=== PATIENT | female | born 1995 | race African-American/Black ===

== ENCOUNTER 2016-05-15 14:58 | Emergency (ER) | payer BC ==
[2016-05-15] MEDS ORDERED: Alum Hydroxide/Mag Hydroxide 15 ML, Lidocaine 2% 15 ML PO ONE ×2 (15:12)
[2016-05-15] MEDS ORDERED: Ondansetron 8 MG Tab.DIS PO ONE (15:12)
--- NOTE | 2016-05-15 15:27 | EDM.PDOC ---
ED HPI GI/ABDOMINAL - General Chief Complaint: Abdominal Pain Stated Complaint: abdominal pain Time Seen by Provider: 05/15/16 15:18 Source: Reports: Patient History Limitations: Reports: No limitations - History of Present Illness INITIAL COMMENTS - FREE TEXT/NARRATIVE: 20 years old b f came to the ed 3 days after she had her gallbladder and part of her Thyroid removed, complaining of abdominal pain. She said she feels SOB, being afraid of breathing because her stomach while breathing. No trauma. She feels nauseated. Her puls ox was 100%. Pt has painfull urinations, denies . Pt denies any other acute medical issues. Symptom Onset Date: 05/14/16 Symptom Onset Time: 08:00 Timing/Duration: Reports: Hour(s): Location: other (epigastric) Quality: Reports: burning, cramping Severity: moderate Worsens with: Reports: urinating, palpation Context: Reports: recent surgery Associated Symptoms (-Female): Reports: denies other symptoms - Related Data Allergies/ADRs: Allergies Allergy/AdvReac Type Severity Reaction Status Date / Time No Known Allergies Allergy Verified 05/15/16 17:03 Home Meds: Home Meds Ondansetron [Zofran ODT] 4 mg PO Q6H PRN #10 tab.dis 05/15/16 [Rx] oxyCODONE HCl/Acetaminophen [Percocet 10-325 mg Tablet] 1 each PO Q4HR PRN 05/15 [History] Past Medical History - Past Health History Medical/Surgical History: Denies Medical/Surgical History Social & Family History - Tobacco Use Smoking Status *Q: Former Smoker Years of Tobacco use: 1 Used Tobacco, but Quit: Yes Month Tobacco Last Used: 05/14/13 Second Hand Smoke Exposure: Yes - Alcohol Use Days Per Week of Alcohol Use: 0 Number of Drinks Per Day: 3 Total Drinks Per Week: 0 - Recreational Drug Use Recreational Drug Use: No Drug Use in Last 12 Months: Yes Recreational Drug Type: Reports: Marijuana/Hashish Recreational Drug Use Frequency: Binges ED ROS GENERAL - Review of Systems Review Of Systems: See Below Constitutional: Reports: no symptoms HEENT: Reports: No symptoms Respiratory: Reports: Shortness of Breath (hurts to breath) Cardiovascular: Reports: No symptoms Endocrine: Reports: no symptoms GI/Abdominal: Reports: Nausea, Other (epigastric pain) : Reports: dysuria Musculoskeletal: Reports: no symptoms Skin: Reports: wound (surgical wounds RUQ and R ant neck.) Neurological: Reports: No Symptoms Psychiatric: Reports: No symptoms Hematologic/Lymphatic: Reports: no symptoms Immunologic: Reports: no symptoms ED EXAM, GI/ABD - Physical Exam Exam: See Below Exam Limited By: No limitations General Appearance: alert, WD/WN, mild distress Eyes: bilateral: normal appearance Ears: normal external exam Nose: normal inspection, normal mucosa Throat/Mouth: Normal inspection, Normal lips, Normal teeth, Normal gums, Normal oropharynx Head: atraumatic, normocephalic Neck: normal inspection, supple, non-tender, full range of motion Respiratory/Chest: no respiratory distress, lungs clear, normal breath sounds, no accessory muscle use, chest non-tender Cardiovascular: normal peripheral pulses, regular rate, rhythm, no edema, no gallop GI/Abdominal: tenderness (dender epigastric area) (Female) Exam: Deferred Rectal (Female) Exam: Deferred Back Exam: normal inspection, full range of motion Extremities: normal inspection, normal range of motion, non-tender, no pedal edema, normal capillary refill Neurological: alert, oriented, CN II-XII intact, normal cognition, normal gait Psychiatric: normal affect Skin Exam: Warm, Dry, Normal color, No rash, Other (weel healing surgical scars) Lymphatic: no adenopathy Course - Vital Signs Text/Narrative:: 20 years old b f came to the ed 3 days after she had her gallbladder and part of her Thyroid removed, complaining of abdominal pain. She said she feels SOB, being afraid of breathing because her stomach while breathing. No trauma. She feels nauseated. Her puls ox was 100%. Pt has painfull urinations, denies . Pt denies any other acute medical issues. PE: Epigastric pain Impression: Gastritis S/P Cholecystectomy Tx: Zofran, GI cocktail Reexam: Improved Plan: D/C with instructions Last Recorded V/S: Last Vital Signs Temp 37.0 C 05/15/16 16:25 Pulse 87 05/15/16 16:25 Resp 15 05/15/16 16:25 BP 131/76 05/15/16 16:25 Pulse Ox 99 05/15/16 16:25 - Orders/Labs/Meds Labs: Laboratory Tests 05/15/16 05/15/16 05/15/16 Range/Units 15:36 15:36 15:36 Urine Color Yellow (YELLOW) Urine Appearance Clear (CLEAR) Urine pH 5.0 (5.0-6.5) Ur Specific [place] 1.020 (1.010-1.025) Urine Protein Negative (NEGATIVE) mg/dL Urine Glucose (UA) Normal (NEGATIVE) mg/dL Urine Ketones Negative (NEGATIVE) mg/dL Urine Occult Blood Negative (NEGATIVE) Urine Nitrite Negative (NEGATIVE) Urine Bilirubin Negative (NEGATIVE) Urine Urobilinogen Normal (NEGATIVE) mg/dL Ur Leukocyte Esterase Negative (NEGATIVE) Urine RBC 0-5 (0) Urine WBC 0-5 (0) Ur Squamous Epith Cells Moderate H (NS,R,O) Urine Bacteria Moderate H (NS) Urine HCG, Qual Negative (NEGATIVE) Urine Opiates Screen Negative (NEGATIVE) Ur Oxycodone Screen Positive H (NEGATIVE) Ur Propoxyphene Screen Negative (NEGATIVE) Ur Barbituates Screen Negative (NEGATIVE) Ur Tricyclics Screen Negative (NEGATIVE) Ur Phencyclidine Scrn Negative (NEGATIVE) Ur Amphetamine Screen Negative (NEGATIVE) Urine MDMA Screen Negative (NEGATIVE) U Benzodiazepines Scrn Negative (NEGATIVE) U Cocaine Metab Screen Negative (NEGATIVE) U Marijuana (THC) Screen Positive H (NEGATIVE) Meds: Medications Discontinued Medications Generic Name Dose Route Start Last Admin Trade Name Freq PRN Reason Stop Dose Admin Al Hydroxide/Mg Hydroxide 30 ml 05/15/16 15:54 05/15/16 16:00 Mag-Al Susp PO 05/15/16 15:55 30 ml ONETIME STA Administration Al Hydroxide/Mg Hydroxide 15 0 ml 05/15/16 15:12 05/15/16 15:21 ml/ Lidocaine HCl 15 ml PO 05/15/16 15:13 15 ml ONETIME ONE Administration Hydromorphone HCl 0.5 mg 05/15/16 16:54 Dilaudid IVPUSH 05/15/16 16:55 ONETIME ONE Hydromorphone HCl 0.5 mg 05/15/16 17:14 Dilaudid IVPUSH 05/15/16 17:15 ONETIME ONE Sodium Chloride 1,000 mls @ 999 mls/hr 05/15/16 16:53 Normal Saline IV 05/15/16 17:53 .BOLUS ONE Promethazine HCl 12.5 mg/ 50.5 mls @ 200 mls/hr 05/15/16 17:02 Sodium Chloride IV 05/15/16 17:17 ONETIME STA Ondansetron HCl 8 mg 05/15/16 15:12 05/15/16 15:24 Zofran Odt PO 05/15/16 15:13 8 mg ONETIME ONE Administration Pantoprazole Sodium 40 mg 05/15/16 17:08 Protonix Iv IVPUSH 05/15/16 17:09 ONETIME ONE Departure - Departure Time of Disposition: 16:15 Disposition: Home, Self-Care 01 Condition: good Clinical Impression: Gastritis Qualifiers: Gastritis type: unspecified gastritis Chronicity: acute Gastritis bleeding: without bleeding Qualified Code(s): K29.00 - Acute gastritis without bleeding Prescriptions: Ondansetron [Zofran ODT] 4 mg PO Q6H PRN #10 tab.dis PRN Reason: Nausea Instructions: Gastritis, Adult, [id number] Referrals: Milton Coronado MD [Primary Care Provider] - Forms: ED Department Discharge Additional Instructions: Please take Maalox 30 cc every 8 yours as needed for epigastric pain. Please take Zofran fro nausea,please f/u, come back if your symptoms get worse acutely.
[2016-05-15] MEDS ORDERED: Aluminum Hydroxide/Magnesium Hydroxide Susp 30 ML Cup PO STA (15:54)
[2016-05-15 16:41] VITALS: BP 131/76
[2016-05-15] MEDS ORDERED: Sodium Chloride 0.9% 1,000 ML IV ONE (16:53)
[2016-05-15] MEDS ORDERED: HYDROmorphone 2 MG/ML SDV IVPUSH ONE ×2 (16:54→17:14)
[2016-05-15] MEDS ORDERED: Promethazine 12.5 MG in Sodium Chloride 0.9% 50 ML IV STA (17:02)
[2016-05-15] MEDS ORDERED: Pantoprazole 40 MG Vial IVPUSH ONE (17:08)
== END 2016-05-15 16:25 | disposition home or self-care (01) ==
LOC: FB.ED 14:58
DX: K29.00 Acute gastritis without bleeding (principal); Z87.891 Personal history of nicotine dependence
CPT/HCPCS: 80305; 81001; 81025; 99284; A9270

== ENCOUNTER 2016-05-15 16:52 | Observation (INO) | payer BC ==
[2016-05-15] MEDS ORDERED: Sodium Chloride 0.9% 1,000 ML IV SCH ×2 (17:00→18:15)
[2016-05-15] MEDS ORDERED: HYDROmorphone 2 MG/ML SDV IVPUSH ONE ×2 (17:20)
[2016-05-15] MEDS ORDERED: Promethazine 12.5 MG in Sodium Chloride 0.9% 50 ML IV PRN (17:21)
[2016-05-15] MEDS ORDERED: Pantoprazole 40 MG Vial IVPUSH ONE (17:22)
--- NOTE | 2016-05-15 17:25 | EDM.PDOC ---
[id number] 4d VOMITTING Time Seen by Provider: 05/15/16 16:52 Source: Reports: Patient, Family History Limitations: Reports: Other (N/V) - History of Present Illness INITIAL COMMENTS - FREE TEXT/NARRATIVE: 20 years old b f s/p cholecystectomy 05/12/2016, was here in the ed about 2.30 pm due to epigastric pain. She took one Percocet at noon and came to the ed at about 2.30pm because her epigastric pain got worse. HCG was neg. Here in the ED, she was doing better after zofran and a gi cocktial were given. She was discharged to home. Pt was texting while in the ed requesting to be discharged. Pt left the premises, came a little while later with her mom complaining of severe epigastric pain, retching, bending over, pallor and diaphoretic. Her vital were nl. Pt denied "street drug" use. Denied trauma. Symptom Onset Date: 05/15/16 Symptom Onset Time: 07:00 Timing/Duration: Reports: Sudden onset Location: other (epigastric) Quality: Reports: ache, burning, cramping, fullness, stabbing, throbbing Severity: severe Context: Reports: recent surgery Associated Symptoms (-Female): Reports: loss of appetite, nausea/vomiting - Related Data Allergies/ADRs: Allergies Allergy/AdvReac Type Severity Reaction Status Date / Time No Known Allergies Allergy Verified 05/15/16 17:03 Home Meds: Home Meds Ondansetron [Zofran ODT] 4 mg PO Q6H PRN #10 tab.dis 05/15/16 [Rx] oxyCODONE HCl/Acetaminophen [Percocet 10-325 mg Tablet] 1 each PO Q4HR PRN 05/15 [History] Past Medical History - Past Health History Medical/Surgical History: Denies Medical/Surgical History Gastrointestinal History: Reports: Cholelithiasis [employer] History: Reports: Other OB/BYN History: breast reduction - Past Surgical History Other HEENT Surgeries/Procedures: wisdom teeth removed, Rt thyroidectomy GI Surgical History: Reports: Cholecystectomy Social & Family History - Family History Family Medical History: Unobtainable - Tobacco Use Smoking Status *Q: Former Smoker Years of Tobacco use: 1 Used Tobacco, but Quit: Yes Month Tobacco Last Used: 05/14/13 Second Hand Smoke Exposure: Yes - Caffeine Use Caffeine Use: Reports: Coffee, Tea - Alcohol Use Days Per Week of Alcohol Use: 0 Number of Drinks Per Day: 3 Total Drinks Per Week: 0 - Recreational Drug Use Recreational Drug Use: No Drug Use in Last 12 Months: Yes Recreational Drug Type: Reports: Marijuana/Hashish Recreational Drug Use Frequency: Binges ED ROS GENERAL - Review of Systems Review Of Systems: See Below Constitutional: Reports: other (epigastric pain) HEENT: Reports: No symptoms Respiratory: Reports: No Symptoms Cardiovascular: Reports: No symptoms Endocrine: Reports: no symptoms GI/Abdominal: Reports: Abdominal pain, Nausea, Vomiting : Reports: dysuria Musculoskeletal: Reports: no symptoms Skin: Reports: no symptoms Neurological: Reports: No Symptoms Psychiatric: Reports: No symptoms Hematologic/Lymphatic: Reports: no symptoms Immunologic: Reports: no symptoms ED EXAM, GI/ABD - Physical Exam Exam: See Below Exam Limited By: Other (N/V epigastric pain) General Appearance: alert, WD/WN, moderate distress Eyes: bilateral: normal appearance Ears: normal external exam Nose: normal inspection, normal mucosa Throat/Mouth: Normal inspection, Normal lips, Normal teeth Head: atraumatic, normocephalic Neck: normal inspection, supple, non-tender Respiratory/Chest: no respiratory distress, lungs clear, normal breath sounds, no accessory muscle use Cardiovascular: normal peripheral pulses, regular rate, rhythm, no edema, no JVD , no murmur GI/Abdominal: hypoactive bowel sounds, tenderness, distention, guarding (Female) Exam: Deferred Rectal (Female) Exam: Deferred Back Exam: normal inspection Extremities: normal inspection Neurological: alert, oriented, CN II-XII intact, normal cognition Psychiatric: normal affect, normal mood Skin Exam: Warm, Dry, Intact, Normal color, No rash Lymphatic: no adenopathy Course - Vital Signs Text/Narrative:: 20 years old b f s/p cholecystectomy 05/12/2016, was here in the ed about 2.30 pm due to epigastric pain. She took one Percocet at noon and came to the ed at about 2.30pm because her epigastric got worse. HCG was neg. Here in the ED, she was doing better after zofran and a gi cocktial and was discharged home. Pt was texting while in the ed requesting to be discharged. Pt left the premises, came a little while later with her mom complaining of severe epigastric pain, retching, bending over, pallor and diaphoretic. Her vital were nl. Pt denied "street drug" use. Denied trauma. PE: Pallor, diaphoretic complaining of epigastruic pain: Tender epigastricum, decr. bowelsounds Labs: LFT and Amylase was nl. WBC was 12.5 Imaging: abd. flat/upright NAD as per Dr. Smyth. 8.32 pmCT abd. as per Dr. Smyth : nonspecific could be postoperative of any kind of inflammation 6.14pm: Consultation: Dr. Jacobs: Surgeon at [facility]: US RUG of abdomen. Imaging: US not available till 7 am 8.35 pm: Consultation Dr. Blount, Surgeon: Will see pt at the [facility]: recommended to transfer the Pt to [facility] DDx: Possible bile leak. PLan: Tranfere to [facility], direct admit. 9.22pm, Accepting Physician: Dr. Wallis Last Recorded V/S: Last Vital Signs Temp 36.6 C 05/15/16 19:00 Pulse 68 05/15/16 19:00 Resp 16 05/15/16 19:00 BP 145/85 H 05/15/16 19:00 Pulse Ox 100 05/15/16 19:00 - Orders/Labs/Meds Labs: Laboratory Tests 05/15/16 05/15/16 05/15/16 Range/Units 17:40 17:40 17:40 WBC 12.5 H (4.5-12.0) X10-3/uL RBC 5.01 (3.23-5.20) x10(6)uL Hgb 14.7 D (11.5-15.5) g/dL Hct 46.3 D (30.0-51.3) % MCV 92.4 (80-96) fL MCH 29.4 (27.7-33.6) pg MCHC 31.9 L (32.2-35.4) g/dL RDW 12.0 (11.5-15.5) % Plt Count 220 (125-369) X10(3)uL MPV 8.1 (7.4-10.4) fL Add Manual Diff Yes Neutrophils % (Manual) 78 (46-82) % Band Neutrophils % 2 (0-6) % Lymphocytes % (Manual) 17 (13-37) % Monocytes % (Manual) 3 L (4-12) % PT 11.3 H (8.7-11.1) INR 1.12 (0.89-1.13) Sodium 135 (135-145) mmol/L Potassium 3.7 (3.5-5.3) mmol/L Chloride 102 (100-110) mmol/L Carbon Dioxide 23 (23-29) mmol/L BUN 7 (5-20) mg/dL Creatinine 0.6 (0.6-1.3) mg/dL Est Cr Clr Drug Dosing 137.68 mL/min Estimated GFR (MDRD) > 60 (>60) BUN/Creatinine Ratio 11.7 (9-20) Glucose 158 H (80-116) mg/dL Calcium 9.0 (8.6-10.2) mg/dL Total Bilirubin 0.8 (0.1-1.3) mg/dL Direct Bilirubin 0.1 (0.1-0.2) mg/dL AST 27 (5-27) IU/L ALT 40 H (14-26) IU/L Alkaline Phosphatase 47 L (56-112) IU/L Total Protein 8.3 H (6.0-8.0) g/dL Albumin 4.8 (3.5-5.2) g/dL Amylase 38 (28-100) U/L TSH, Ultra Sensitive (0.4-5.5) nlU/mL 05/15/16 Range/Units 17:40 WBC (4.5-12.0) X10-3/uL RBC (3.23-5.20) x10(6)uL Hgb (11.5-15.5) g/dL Hct (30.0-51.3) % MCV (80-96) fL MCH (27.7-33.6) pg MCHC (32.2-35.4) g/dL RDW (11.5-15.5) % Plt Count (125-369) X10(3)uL MPV (7.4-10.4) fL Add Manual Diff Neutrophils % (Manual) (46-82) % Band Neutrophils % (0-6) % Lymphocytes % (Manual) (13-37) % Monocytes % (Manual) (4-12) % PT (8.7-11.1) INR (0.89-1.13) Sodium (135-145) mmol/L Potassium (3.5-5.3) mmol/L Chloride (100-110) mmol/L Carbon Dioxide (23-29) mmol/L BUN (5-20) mg/dL Creatinine (0.6-1.3) mg/dL Est Cr Clr Drug Dosing mL/min Estimated GFR (MDRD) (>60) BUN/Creatinine Ratio (9-20) Glucose (80-116) mg/dL Calcium (8.6-10.2) mg/dL Total Bilirubin (0.1-1.3) mg/dL Direct Bilirubin (0.1-0.2) mg/dL AST (5-27) IU/L ALT (14-26) IU/L Alkaline Phosphatase (56-112) IU/L Total Protein (6.0-8.0) g/dL Albumin (3.5-5.2) g/dL Amylase (28-100) U/L TSH, Ultra Sensitive 1.23 (0.4-5.5) nlU/mL Meds: Medications Discontinued Medications Generic Name Dose Route Start Last Admin Trade Name Freq PRN Reason Stop Dose Admin Diphenhydramine HCl 25 mg 05/15/16 18:50 05/15/16 18:57 Benadryl IVPUSH 05/15/16 18:51 25 mg ONETIME ONE Administration Hydromorphone HCl 0.5 mg 05/15/16 17:20 05/15/16 17:44 Dilaudid IVPUSH 05/15/16 17:21 0.5 mg ONETIME ONE Administration Hydromorphone HCl 0.5 mg 05/15/16 17:20 05/15/16 17:20 Dilaudid IVPUSH 05/15/16 17:21 0.5 mg ONETIME ONE Administration Promethazine HCl 12.5 mg/ 50.5 mls @ 200 mls/hr 05/15/16 17:21 05/15/16 17:21 Sodium Chloride IV 200 mls/hr Q6H PRN Administration Nausea/Vomiting Sodium Chloride 1,000 mls @ 999 mls/hr 05/15/16 17:00 05/15/16 17:00 Normal Saline IV 999 mls/hr ASDIRECTED MARY JO Administration Sodium Chloride 1,000 mls @ 125 mls/hr 05/15/16 18:15 05/15/16 18:10 Normal Saline IV 125 mls/hr ASDIRECTED MARY JO Administration Iopamidol 75 ml 05/15/16 19:26 05/15/16 19:47 Isovue-370 (76%) IV 05/15/16 19:27 75 ml ONETIME ONE Administration Morphine Sulfate 2 mg 05/15/16 17:57 05/15/16 18:04 Morphine IVPUSH 05/15/16 17:58 2 mg ONETIME ONE Administration Morphine Sulfate 1 mg 05/15/16 21:20 05/15/16 21:20 Morphine IVPUSH 05/15/16 21:21 1 mg Q1H ONE Administration Morphine Sulfate 1 mg 05/15/16 22:14 05/15/16 22:15 Morphine IVPUSH 1 mg Q1H PRN Administration Abdominal Pain Ondansetron HCl 4 mg 05/15/16 18:46 Zofran IV Q6H PRN Nausea/Vomiting Pantoprazole Sodium 40 mg 05/15/16 17:22 05/15/16 17:25 Protonix Iv IVPUSH 05/15/16 17:23 40 mg ONETIME ONE Administration Departure - Departure Time of Disposition: 08:00 Disposition: Admitted As Inpatient 64 Condition: fair Clinical Impression: Abdominal pain Qualifiers: Abdominal location: upper abdomen, unspecified Qualified Code(s): R10.10 - Upper abdominal pain, unspecified
[2016-05-15] MEDS ORDERED: Morphine 2 MG/ML Syringe IVPUSH ONE ×2 (17:57→21:20)
[2016-05-15] MEDS ORDERED: Ondansetron 4 MG/2 ML SDV IV PRN (18:46)
[2016-05-15] MEDS ORDERED: diphenhydrAMINE 50 MG/ML SDV IVPUSH ONE (18:50)
[2016-05-15 19:20] VITALS: BP 145/85
[2016-05-15] MEDS ORDERED: Iopamidol 755 Mg/ML 75 ML Bottle IV ONE (19:26)
[2016-05-15] MEDS ORDERED: Morphine 2 MG/ML Syringe IVPUSH PRN (22:14)
--- NOTE | 2016-05-16 01:07 | CONS ---
DATE OF CONSULTATION: 05/15/2016 HISTORY OF PRESENT ILLNESS: This is a 20-year-old female is seen tonight at the request of the hospitalist. This patient underwent laparoscopic cholecystectomy along with a partial thyroidectomy on 05/11/2016. This was done at the [facility] in [place]. The patient apparently did well for the 1st three days after surgery, but this morning noted some epigastric pain when she dropped her son off at daycare. This was unlike any pain that she had up to this point. The pain became quite intense and she presented to the emergency room where she was given pain medication and had initial evaluation. She seemed to improve and went home, but after less than one hour at home she noted her pain continuing to worsen and presented back to the emergency room. This has led to further evaluation and admission. The patient describes her pain in the upper abdomen most severe in the right upper quadrant and in the epigastrium. She describes it as a gradually increasing pressure feeling. It is associated with some nausea and she has had several episodes of vomiting. The patient did not have much pain from carbon dioxide postoperatively and this pain that she is experiencing today is unlike anything that she has felt previously during her recovery. She was evaluated in emergency room, where laboratory studies were drawn. She has had a mild elevation of her white blood cell count 12,500. Hemoglobin was normal at 14.7. Liver function tests were unremarkable including a bilirubin, which is 0.8. Her amylase was also normal. The patient went on to have a CT scan of the abdomen, which was interpreted by the local radiologist as showing large amount of intraabdominal fluid. No localized abscess or other complication was noted. PAST MEDICAL HISTORY: Shows that she is otherwise generally been healthy. She does not take any routine medications at home other than postoperative pain medication. ALLERGIES: She has no known drug allergies. PAST SURGICAL HISTORY: She has not had any previous abdominal surgery. PHYSICAL EXAMINATION: VITAL SIGNS: Shows temperature of 97.9, pulse 68, blood pressure is 145/85, respirations are 16 and unlabored. GENERAL: She appears to be an adult female. She is in no acute distress, but does complain of intense epigastric pain. HEENT: Head is normocephalic. There is no scleral icterus. HEART: Regular. LUNGS: Clear. ABDOMEN: Demonstrates mild general distention. There is moderate tenderness to direct palpation in the upper abdomen with some mild percussion tenderness in the right upper quadrant. Her surgical incisions on her abdomen and her neck all appeared to be healing well without any erythema or evidence of purulent drainage. EXTREMITIES: No edema. IMPRESSION: Increasing abdominal pain and intraabdominal fluid post cholecystectomy and consider possible bile leak. RECOMMENDATIONS: Advised transfer to [facility] in [place] where more thorough evaluation can be carried out and definitive care could be given pending final diagnosis. I have discussed this with the patient and she agrees to accept transfer by ambulance. Discussion has also been carried out with the surgeon information coder, and the staff in [facility] in [place] and they have agreed to accept this patient as a direct admission for evaluation. She will be transferred tonight. /[id number] JEAN PAUL/LILY AGUILAR
--- NOTE | 2016-05-16 08:35 | CR ---
INDICATION: Abdominal pain after surgery (status post GB and thyroid surgery ). Pain over incisions and right upper quadrant starting today. ABDOMEN: Four images of the abdomen in supine and upright projections revealed clips compatible with cholecystectomy. The pattern of gas and feces is nonspecific, without evidence of free air or obstruction. No organomegaly, mass lesions, or pathologic calcifications were identified. A mild dextroconcave scoliosis of the upper middle lumbar spine is noted. IMPRESSION: 1. Essentially nonspecific abdomen. 2. Post cholecystectomy. 3. Mild scoliosis. Report was called to Dr. Marivel grant (05/15/2016) LAUREN
--- NOTE | 2016-05-16 08:53 | CT ---
INDICATION: Abdomen pain, question appendicitis. CT ABDOMEN AND PELVIS WITH CONTRAST: Spiral 2.5-mm axial sections were obtained through the abdomen and pelvis with 75 mL Isovue-370 at 2 mL per second , with sagittal and coronal reconstructions. What appears to be the appendix appeared normal, seen on coronal image #30 of 84 and also on axial image #111 of 187. The gallbladder is absent, compatible with history of its removal, with clips in the area of the cystic duct. There is some fluid in the gallbladder bed and at the inferior tip of the right lobe of the liver. Fluid also extends into the paracolic gutter, inferiorly into the pelvis, with fluid also noted in the left pelvis and posterior cul-de- sac. These findings may all be on the basis of the relatively recent surgery - cholecystectomy apparently on 05/11/2016. The possibility of an inflammatory process, however, cannot be excluded. At any rate, no definite abscess formation was seen. No evidence of bowel obstruction was identified, with a nonspecific pattern of gas and feces and no significant - large amount - of free air noted. There are a few bubbles of free air, which may simply be on the basis of the recent surgery, but again, the possibility of peritonitis with gas-forming organism is difficult to entirely exclude. Findings should be correlated clinically, therefore. No intrahepatic ductal dilatation was identified. The common bile duct appeared normal in caliber. The pancreas was normal in appearance, as was the spleen, adrenals, and kidneys. No retroperitoneal mass was seen. No definite uterine mass was seen. Follicular cyst suggested at the left ovary. IMPRESSION: 1. There is abdominal ascites, most prominent in the pelvis, likely on the basis of recent surgery. However, the possibility of peritonitis cannot be excluded. Some residual free air in the pelvis most likely is post surgical, but again, gas-forming organism peritonitis would be a consideration or leakage from bowel. Only a few tiny bubbles of gas were seen, however, intraperitoneally. 2. Post cholecystectomy. CT PELVIS: Examination of the pelvis was obtained by CT, as noted above, and revealed fluid in the pelvis, both right and left, and in the posterior cul-de- sac area. Fluid is nonspecific and may simply be on the basis of the recent cholecystectomy. Peritonitis, of course, cannot be excluded. Other etiology, such as a large ruptured ovarian cyst cannot be excluded. There are a few bubbles of free air in the lower pelvis area and some gas in the abdominal wall , likely on the basis of the previous surgery. Findings should be correlated clinically. Follow-up study may be warranted, depending upon clinical course. Total Exam DLP = 401.17 mGy-cm. Report was called to Dr. Orta at 2035 hours, 05/15/2016. [facility]
== END 2016-05-15 22:15 ==
LOC: FB.ED 16:52 → FB.MS 18:46
PROVIDERS: ADMIT Family Medicine; ATTEND Family Medicine
DX: R10.10 Upper abdominal pain, unspecified (principal); E89.0 Postprocedural hypothyroidism; Z79.899 Other long term (current) drug therapy; Z90.49 Acquired absence of other specified parts of digestive tract; Z98.890 Other specified postprocedural states; Z87.891 Personal history of nicotine dependence; R10.13 Epigastric pain; R06.02 Shortness of breath; R11.0 Nausea
CPT/HCPCS: 36415; 74020; 74177; 80048; 80076; 80305; 81001; 81025; 82150; 83605; 84443; 85025; 85610; 96361; 96374; 96375; 96376; 99284; A9270; C9113; G0378; J1170; J1200; J2270; J2550; J7040; J7050; Q9967

== ENCOUNTER 2019-06-26 12:30 | Emergency (ER) | payer MEDICAID ==
[2019-06-26] MEDS ORDERED: Sodium Chloride 0.9% 1,000 ML IV SCH (12:45)
[2019-06-26] MEDS ORDERED: Sodium Chloride 0.9% 10 ML Syringe FLUSH PRN (12:45)
[2019-06-26] MEDS ORDERED: Ondansetron 4 MG/2 ML SDV IVPUSH ONE (12:45)
[2019-06-26] MEDS ORDERED: Pantoprazole 40 MG Vial IVPUSH ONE (12:47)
--- NOTE | 2019-06-26 13:57 | EDM.PDOC ---
ED HPI GENERAL MEDICAL PROBLEM - General Chief Complaint: Gastrointestinal Problem Stated Complaint: VOMITING Time Seen by Provider: 06/26/19 12:40 Source of Information: Reports: Patient History Limitations: Reports: No Limitations - History of Present Illness INITIAL COMMENTS - FREE TEXT/NARRATIVE: Patient presented to the ED because of persistent N/V/D x 1 day. She couldn't keep anything down. There is epigastric pain most likely due to her PUD, although she denies any melanotic stools. There is no fever or chills, no cough or cold symptoms. 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 . Musculoskeletal History: Reports: Back Pain, Chronic Psychiatric History: Reports: Anxiety, Other (See Below) Other Psychiatric History: Takes Adderall. Endocrine/Metabolic History: Reports: Hyperthyroidism Other Endocrine/Metabolic History: History of hyperthyroidism. - Past Surgical History HEENT Surgical History: Reports: Oral Surgery Other HEENT Surgeries/Procedures: [place] teeth removed. Right thyroidectomy. GI Surgical History: Reports: Cholecystectomy, Hernia, Inguinal, Hernia Repair/ Other Other GI Surgeries/Procedures: Umbilical hernia repair. Endocrine Surgical History: Reports: Thyroidectomy Other Endocrine Surgeries/Procedures: Partial thyroidectomy. Social & Family History - Family History Family Medical History: Unobtainable - Tobacco Use Smoking Status *Q: Never Smoker - Caffeine Use Caffeine Use: Reports: Coffee, Tea - Recreational Drug Use Recreational Drug Type: Reports: Marijuana/Hashish ED ROS GENERAL - Review of Systems Review Of Systems: See Below Constitutional: Reports: No Symptoms HEENT: Reports: No Symptoms Respiratory: Reports: No Symptoms Cardiovascular: Reports: No Symptoms Endocrine: Reports: No Symptoms GI/Abdominal: Reports: Diarrhea, Nausea, Vomiting Musculoskeletal: Reports: No Symptoms Skin: Reports: No Symptoms ED EXAM, GI/ABD - Physical Exam Exam: See Below Exam Limited By: No Limitations General Appearance: Alert, No Apparent Distress Ears: Normal External Exam, Normal Canal Nose: Normal Inspection, Normal Mucosa, No Blood Throat/Mouth: Normal Inspection, Normal Lips, Normal Teeth Head: Atraumatic, Normocephalic, Facial Swelling Neck: Normal Inspection, Supple, Non-Tender Respiratory/Chest: No Respiratory Distress, Lungs Clear, Normal Breath Sounds Cardiovascular: Normal Peripheral Pulses, Regular Rate, Rhythm, No Edema GI/Abdominal Exam: Normal Bowel Sounds, Soft, Non-Tender, Abnormal Bowel Sounds Back Exam: Normal Inspection, Full Range of Motion Course - Vital Signs Text/Narrative:: labs reviewed and discussed with patient and verbalized full understanding NS 1 L bolus Zofran 4 mg IV x1 Protonix 40 mg IV x1 Last Recorded V/S: Last Vital Signs Temp 34.7 C L 06/26/19 12:40 Pulse 124 H 06/26/19 12:40 Resp 16 06/26/19 12:40 BP 140/89 06/26/19 12:40 Pulse Ox 100 06/26/19 12:40 - Orders/Labs/Meds Orders: Active Orders 24 hr Category Date Time Status Sodium Chloride 0.9% [Normal Saline] 1,000 ml Med 06/26/19 12:45 Active IV ASDIRECTED Sodium Chloride 0.9% [Saline Flush] Med 06/26/19 12:45 Active 10 ml FLUSH ASDIRECTED PRN Saline Lock Insert [OM.PC] Routine Oth 06/26/19 12:45 Ordered Medication Orders Sodium Chloride (Normal Saline) 1,000 mls @ 999 mls/hr IV ASDIRECTED MARY JO Last Admin: 06/26/19 13:05 Dose: 999 mls/hr Sodium Chloride (Saline Flush) 10 ml FLUSH ASDIRECTED PRN PRN Reason: Keep Vein Open Labs: Laboratory Tests 06/26/19 06/26/19 Range/Units 12:55 12:55 WBC 14.9 H (4.5-12.0) X10-3/uL RBC 5.28 H (3.23-5.20) x10(6)uL Hgb 17.2 H (11.5-15.5) g/dL Hct 50.4 (30.0-51.3) % MCV 95.4 (80-96) fL MCH 32.5 (27.7-33.6) pg MCHC 34.1 (32.2-35.4) g/dL RDW 11.6 (11.5-15.5) % Plt Count 258 (125-369) X10(3)uL MPV 8.2 (7.4-10.4) fL Neut % (Auto) 84.0 H (46-82) % Lymph % (Auto) 12.0 L (13-37) % [place] % (Auto) 3.3 L (4-12) % Eos % (Auto) 0 L (1.0-5.0) % Baso % (Auto) 1 (0-2) % Neut # (Auto) 12.5 H (1.6-8.3) # Lymph # (Auto) 1.8 (0.6-5.0) # [place] # (Auto) 0.5 (0.0-1.3) # Eos # (Auto) 0.0 (0.0-0.8) # Baso # (Auto) 0.1 (0.0-0.2) # Sodium 137 (135-145) mmol/L Potassium 4.6 (3.5-5.3) mmol/L Chloride 101 (100-110) mmol/L Carbon Dioxide 24 (21-32) mmol/L BUN 8 (7-18) mg/dL Creatinine 0.9 (0.55-1.02) mg/dL Est Cr Clr Drug Dosing 85.24 mL/min Estimated GFR (MDRD) > 60 (>60) BUN/Creatinine Ratio 8.9 L (9-20) Glucose 128 H (80-116) mg/dL Calcium 9.8 (8.6-10.2) mg/dL Meds: Medications Generic Name Dose Route Start Last Admin Trade Name Freq PRN Reason Stop Dose Admin Sodium Chloride 1,000 mls @ 999 mls/hr 06/26/19 12:45 06/26/19 13:05 Normal Saline IV 999 mls/hr ASDIRECTED MARY JO Administration Sodium Chloride 10 ml 06/26/19 12:45 Saline Flush FLUSH ASDIRECTED PRN Keep Vein Open Discontinued Medications Generic Name Dose Route Start Last Admin Trade Name Freq PRN Reason Stop Dose Admin Ondansetron HCl 4 mg 06/26/19 12:45 06/26/19 13:06 Zofran IVPUSH 05/14/20 12:46 4 mg ONETIME ONE Administration Pantoprazole Sodium 40 mg 06/26/19 12:47 06/26/19 13:09 Protonix Iv IVPUSH 06/26/19 12:48 40 mg ONETIME ONE Administration Departure - Departure Time of Disposition: 14:00 Disposition: Home, Self-Care 01 Condition: Good Clinical Impression: Viral gastroenteritis, Dehydration, Peptic ulcer - Discharge Information Prescriptions: Ondansetron [Zofran ODT] 4 mg PO Q6H PRN #5 tab.dis PRN Reason: Nausea Referrals: Lucas Gold MD [Primary Care Provider] - Forms: ED Department Discharge Additional Instructions: please read discharge instructions on viral gastroenteritis/stomach flu and dehydration frequent hand washing drink 2-4Liters of water a day zofran ODT 4 mg every 4 hours as needed for nausea you can take imodium(over the counter) 2 tablet ever 6 hours as needed for diarrhea. Quit taking it once you have a normal stool because it can also cause constipation follow up as needed Sepsis Event Note - Evaluation Sepsis Screening Result: No Definite Risk - Focused Exam Vital Signs: Vital Signs Temp Pulse Resp BP Pulse Ox 06/26/19 12:40 34.7 C L 124 H 16 140/89 100 Date Exam was Performed: 06/26/19 Time Exam was Performed: 14:00 - My Orders Last 24 Hours: My Active Orders 06/26/19 12:45 Sodium Chloride 0.9% [Normal Saline] 1,000 ml IV ASDIRECTED Sodium Chloride 0.9% [Saline Flush] 10 ml FLUSH ASDIRECTED PRN Saline Lock Insert [OM.PC] Routine - Assessment/Plan Last 24 Hours: My Active Orders 06/26/19 12:45 Sodium Chloride 0.9% [Normal Saline] 1,000 ml IV ASDIRECTED Sodium Chloride 0.9% [Saline Flush] 10 ml FLUSH ASDIRECTED PRN Saline Lock Insert [OM.PC] Routine
[2019-06-26 14:01] VITALS: BP 132/72; PULSE 88
== END 2019-06-26 14:15 | disposition home or self-care (01) ==
LOC: FB.ED 12:30
DX: A08.4 Viral intestinal infection, unspecified (principal); E86.0 Dehydration; K27.9 Peptic ulcer, site unspecified, unspecified as acute or chronic, without hemorrhage or perforation; Z79.899 Other long term (current) drug therapy
CPT/HCPCS: 36415; 80048; 85025; 96361; 96374; 96375; 99284; C9113; J2405; J7030

== ENCOUNTER 2019-09-25 08:07 | Emergency (ER) | payer MEDICAID, OTHER ==
[2019-09-25] MEDS ORDERED: Ondansetron 4 MG/2 ML SDV IVPUSH ONE (08:23)
[2019-09-25] MEDS ORDERED: Dextrose 5%-Lactated Ringers 1,000 ML IV SCH (08:30)
--- NOTE | 2019-09-25 08:53 | EDM.PDOC ---
ED HPI GENERAL MEDICAL PROBLEM - General Chief Complaint: Gastrointestinal Problem Stated Complaint: nausea and vomiting Time Seen by Provider: 09/25/19 08:30 Source of Information: Reports: Patient History Limitations: Reports: No Limitations - History of Present Illness INITIAL COMMENTS - FREE TEXT/NARRATIVE: Yolanda comes into [facility] ED with a 12 hour hx of nausea, emesis of gastrobilious fluids, and some epigastric cramping. She last ate at 2130 hrs of chickpea sandwich prepared at home. She became ill about 3 am with reported sxs. There ws no fever, chills, sseats, vincent abdominal pain, back pain, or pelvic pain. She has had 1 small formed stool this am. There was no observed BRB in the emesis. Of interest is a PHM of positive H pylori about 5 years ago. She has been taking Prilosec 20 mg for recurrent digestive sxs. - Related Data Allergies Allergy/AdvReac Type Severity Reaction Status Date / Time No Known Allergies Allergy Verified 09/25/19 08:15 Home Meds: Home Meds Adderall Xr 25mg 25 mg PO DAILY 06/26/19 [History] Omeprazole Magnesium [Prilosec Otc] 20 mg PO DAILY 1 Days #30 tablet. 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 . Musculoskeletal History: Reports: Back Pain, Chronic Psychiatric History: Reports: Anxiety, Other (See Below) Other Psychiatric History: Takes Adderall. Endocrine/Metabolic History: Reports: Hyperthyroidism Other Endocrine/Metabolic History: History of hyperthyroidism. - Past Surgical History HEENT Surgical History: Reports: Oral Surgery Other HEENT Surgeries/Procedures: [place] teeth removed. Right thyroidectomy. GI Surgical History: Reports: Cholecystectomy, Hernia, Inguinal, Hernia Repair/Other Other GI Surgeries/Procedures: Umbilical hernia repair. Endocrine Surgical History: Reports: Thyroidectomy Other Endocrine Surgeries/Procedures: Partial thyroidectomy. Social & Family History - Family History Family Medical History: Unobtainable - Caffeine Use Caffeine Use: Reports: Coffee, Tea ED ROS GENERAL - Review of Systems Review Of Systems: See Below Constitutional: Reports: Malaise, Decreased Appetite HEENT: Reports: No Symptoms Respiratory: Reports: No Symptoms Cardiovascular: Reports: No Symptoms Endocrine: Reports: No Symptoms GI/Abdominal: Reports: Decreased Appetite, Nausea, Vomiting : Reports: No Symptoms Musculoskeletal: Reports: No Symptoms Skin: Reports: No Symptoms Neurological: Reports: No Symptoms Psychiatric: Reports: No Symptoms Hematologic/Lymphatic: Reports: No Symptoms Immunologic: Reports: No Symptoms ED EXAM, GI/ABD - Physical Exam Exam: See Below Exam Limited By: No Limitations General Appearance: Alert, WD/WN, Mild Distress, Active Emesis Eyes: Bilateral: Normal Appearance, EOMI Ears: Normal External Exam Nose: Normal Inspection Throat/Mouth: Normal Inspection, Normal Lips, Normal Oropharynx Head: Normocephalic Neck: Normal Inspection, Supple, Non-Tender Respiratory/Chest: Lungs Clear Cardiovascular: Regular Rate, Rhythm, No Murmur GI/Abdominal Exam: Normal Bowel Sounds, Soft, Non-Tender, No Organomegaly, No Distention, No Mass (Female) Exam: Deferred Rectal (Female) Exam: Deferred Back Exam: Normal Inspection Extremities: Normal Inspection Neurological: Alert, Oriented, CN II-XII Intact, Normal Cognition, No Motor/Sensory Deficits Psychiatric: Normal Affect, Normal Mood Skin Exam: Warm, Dry, Intact, Normal Color, No Rash Lymphatic: No Adenopathy Course - Vital Signs Text/Narrative:: Following assessment, screeining labs were obtained, and an IV was started in the LUE, and administered Zofran 8mg IV and 1L of D5LR over the next 2 hours. Screening labs including CBC, CMP, se HCG and UA all baseline. She was sxs improved following treatment. Last Recorded V/S: Last Vital Signs Temp 35.8 C L 09/25/19 08:07 Pulse 98 09/25/19 08:54 Resp 18 09/25/19 08:54 BP 132/82 09/25/19 08:54 Pulse Ox 100 09/25/19 08:54 - Orders/Labs/Meds Orders: Active Orders 24 hr Category Date Time Status H. PYLORI STOOL AG, EIA Urgent Lab 09/25/19 10:16 Ordered Dextrose 5%-Lactated Ringers 1,000 ml Med 09/25/19 08:30 Active IV ASDIRECTED Medication Orders Dextrose/Lactated Ringer's (Dextrose 5%-Lactated Ringers) 1,000 mls @ 500 mls/hr IV ASDIRECTED MARY JO Last Admin: 09/25/19 08:35 Dose: 500 mls/hr Documented by: [facility] Labs: Laboratory Tests 09/25/19 09/25/19 09/25/19 Range/Units 08:30 08:30 08:30 WBC 6.2 (4.5-12.0) X10-3/uL RBC 4.72 (3.23-5.20) x10(6)uL Hgb 14.5 (11.5-15.5) g/dL Hct 44.4 (30.0-51.3) % MCV 94.2 (80-96) fL MCH 30.7 (27.7-33.6) pg MCHC 32.6 (32.2-35.4) g/dL RDW 12.0 (11.5-15.5) % Plt Count 312 (125-369) X10(3)uL MPV 8.4 (7.4-10.4) fL Neut % (Auto) 65.7 (46-82) % Lymph % (Auto) 29.8 (13-37) % [place] % (Auto) 3.6 L (4-12) % Eos % (Auto) 0 L (1.0-5.0) % Baso % (Auto) 1 (0-2) % Neut # (Auto) 4.2 (1.6-8.3) # Lymph # (Auto) 1.8 (0.6-5.0) # [place] # (Auto) 0.2 (0.0-1.3) # Eos # (Auto) 0.0 (0.0-0.8) # Baso # (Auto) 0.0 (0.0-0.2) # Sodium 138 (135-145) mmol/L Potassium 3.6 D (3.5-5.3) mmol/L Chloride 100 (100-110) mmol/L Carbon Dioxide 26 (21-32) mmol/L BUN 12 (7-18) mg/dL Creatinine 0.8 (0.55-1.02) mg/dL Est Cr Clr Drug Dosing 95.89 mL/min Estimated GFR (MDRD) > 60 (>60) BUN/Creatinine Ratio 15.0 (9-20) Glucose 123 H (80-116) mg/dL Calcium 8.9 (8.6-10.2) mg/dL Total Bilirubin 0.3 (0.1-1.3) mg/dL AST 18 (5-25) IU/L ALT 26 (12-36) U/L Alkaline Phosphatase 62 (56-112) IU/L Total Protein 8.5 H (6.0-8.0) g/dL Albumin 4.8 (3.5-5.2) g/dL Globulin 3.7 g/dL Albumin/Globulin Ratio 1.3 HCG, Quant < 5 L (<5) mIU/mL Urine Color (YELLOW) Urine Appearance (CLEAR) Urine pH (5.0-6.5) Ur Specific [place] (1.010-1.025) Urine Protein (NEGATIVE) mg/dL Urine Glucose (UA) (NORMAL) mg/dL Urine Ketones (NEGATIVE) mg/dL Urine Occult Blood (NEGATIVE) Urine Nitrite (NEGATIVE) Urine Bilirubin (NEGATIVE) Urine Urobilinogen (NEGATIVE) mg/dL Ur Leukocyte Esterase (NEGATIVE) Urine RBC (0-5) Urine WBC (0-5) Ur Squamous Epith Cells (NS,R,O) Urine Bacteria (NS) 09/25/19 Range/Units 09:44 WBC (4.5-12.0) X10-3/uL RBC (3.23-5.20) x10(6)uL Hgb (11.5-15.5) g/dL Hct (30.0-51.3) % MCV (80-96) fL MCH (27.7-33.6) pg MCHC (32.2-35.4) g/dL RDW (11.5-15.5) % Plt Count (125-369) X10(3)uL MPV (7.4-10.4) fL Neut % (Auto) (46-82) % Lymph % (Auto) (13-37) % [place] % (Auto) (4-12) % Eos % (Auto) (1.0-5.0) % Baso % (Auto) (0-2) % Neut # (Auto) (1.6-8.3) # Lymph # (Auto) (0.6-5.0) # [place] # (Auto) (0.0-1.3) # Eos # (Auto) (0.0-0.8) # Baso # (Auto) (0.0-0.2) # Sodium (135-145) mmol/L Potassium (3.5-5.3) mmol/L Chloride (100-110) mmol/L Carbon Dioxide (21-32) mmol/L BUN (7-18) mg/dL Creatinine (0.55-1.02) mg/dL Est Cr Clr Drug Dosing mL/min Estimated GFR (MDRD) (>60) BUN/Creatinine Ratio (9-20) Glucose (80-116) mg/dL Calcium (8.6-10.2) mg/dL Total Bilirubin (0.1-1.3) mg/dL AST (5-25) IU/L ALT (12-36) U/L Alkaline Phosphatase (56-112) IU/L Total Protein (6.0-8.0) g/dL Albumin (3.5-5.2) g/dL Globulin g/dL Albumin/Globulin Ratio HCG, Quant (<5) mIU/mL Urine Color Yellow (YELLOW) Urine Appearance Clear (CLEAR) Urine pH 5.0 (5.0-6.5) Ur Specific [place] 1.030 H (1.010-1.025) Urine Protein Trace (NEGATIVE) mg/dL Urine Glucose (UA) 100 H (NORMAL) mg/dL Urine Ketones Negative (NEGATIVE) mg/dL Urine Occult Blood Moderate H (NEGATIVE) Urine Nitrite Negative (NEGATIVE) Urine Bilirubin Negative (NEGATIVE) Urine Urobilinogen Normal (NEGATIVE) mg/dL Ur Leukocyte Esterase Negative (NEGATIVE) Urine RBC 0-5 (0-5) Urine WBC 0-5 (0-5) Ur Squamous Epith Cells Occasional (NS,R,O) Urine Bacteria Few H (NS) Meds: Medications Generic Name Dose Route Start Last Admin Trade Name Freq PRN Reason Stop Dose Admin Dextrose/Lactated Ringer's 1,000 mls @ 500 mls/hr 09/25/19 08:30 09/25/19 08:35 Dextrose 5%-Lactated Ringers IV 500 mls/hr ASDIRECTED MARY JO Administration Discontinued Medications Generic Name Dose Route Start Last Admin Trade Name Freq PRN Reason Stop Dose Admin Ondansetron HCl 8 mg 09/25/19 08:23 09/25/19 08:35 Zofran IVPUSH 09/25/19 08:24 8 mg ONETIME ONE Administration Departure - Departure Time of Disposition: 10:24 Disposition: Home, Self-Care 01 Condition: Fair Clinical Impression: Gastritis Qualifiers: Gastritis type: unspecified gastritis Chronicity: acute Gastritis bleeding: without bleeding Qualified Code(s): K29.00 - Acute gastritis without bleeding - Discharge Information *PRESCRIPTION DRUG MONITORING PROGRAM REVIEWED*: Not Applicable *COPY OF PRESCRIPTION DRUG MONITORING REPORT IN PATIENT FAVIO: Not Applicable Instructions: Gastritis, Adult, [id number], Ondansetron injection Referrals: PCP,None [Primary Care Provider] - Forms: ED Department Discharge Additional Instructions: Activity as tolerated. Clear liquids & advance diet as tolerated. Increase Omeprazole to twice a day for 24 hours. Zofran ODT 4mg every 8 hours as needed for nausea. Follow up with regular MD at clinic tomorrow if still symptomatic. Sepsis Event Note (ED) - Evaluation Sepsis Screening Result: No Definite Risk - Focused Exam Vital Signs: Vital Signs Temp Pulse Resp BP Pulse Ox 09/25/19 08:54 98 18 132/82 100 09/25/19 08:07 35.8 C L 110 H 18 131/96 H 100 - Problem List & Annotations (1) Gastritis SNOMED Code(s): 4338504 Code(s): K29.70 - GASTRITIS, UNSPECIFIED, WITHOUT BLEEDING Status: Acute Current Visit: Yes Annotation/Comment:: Acute gastritis NOS. I suggested increasing Prilosec 20 mg to bid for next 24 hrs, provided refill of Prilosec and added Zofran ODT 4 mg q 8 hrs as needed. I suggested collection of stool specimen for H.pylori, and follow up with PCP if sxs persist. Qualifiers: Gastritis type: unspecified gastritis Chronicity: acute Gastritis bleeding: without bleeding Qualified Code(s): K29.00 - Acute gastritis without bleeding - Problem List Review Problem List Initiated/Reviewed/Updated: Yes - My Orders Last 24 Hours: My Active Orders 09/25/19 08:30 Dextrose 5%-Lactated Ringers 1,000 ml IV ASDIRECTED 09/25/19 10:16 H. PYLORI STOOL AG, EIA Urgent - Assessment/Plan Last 24 Hours: My Active Orders 09/25/19 08:30 Dextrose 5%-Lactated Ringers 1,000 ml IV ASDIRECTED 09/25/19 10:16 H. PYLORI STOOL AG, EIA Urgent Plan: Return stool specimen for H pylori to hospital lab, and follow up with PCP if sxs persist.
[2019-09-25 10:49] VITALS: BP 127/80; PULSE 92
== END 2019-09-25 10:42 | disposition home or self-care (01) ==
LOC: FB.ED 08:07
DX: K29.00 Acute gastritis without bleeding (principal); Z79.899 Other long term (current) drug therapy; Z90.89 Acquired absence of other organs
CPT/HCPCS: 36415; 80053; 81001; 84702; 85025; 96361; 96374; 99284; J2405; J7121

== ENCOUNTER 2019-09-28 20:41 | Emergency (ER) | payer MEDICAID, OTHER ==
[2019-09-28 20:48] VITALS: BP 151/89; PULSE 117
[2019-09-28] MEDS ORDERED: Metoclopramide 10 MG/2 ML SDV IM ONE (21:09)
--- NOTE | 2019-09-28 21:17 | EDM.PDOC ---
ED HPI GENERAL MEDICAL PROBLEM - General Chief Complaint: Gastrointestinal Problem Stated Complaint: VOMITING Time Seen by Provider: 09/28/19 20:55 Source of Information: Reports: Patient History Limitations: Reports: No Limitations - History of Present Illness INITIAL COMMENTS - FREE TEXT/NARRATIVE: c/o N/V pt had COVID 2m ago, says her sxs (TONY, CP, no taste, head cold) lasted for 1-2w in past 2w however, she has been to the ED 3x for n/v, felt okay this AM but then had n/v, took Zofran ODT 2x today with minimal improvement no abd pain, has had BM x 2 in past 4d lives with son who is not ill has h/o H pylori several years ago as well as peptic ulcer labs 3d ago unremarkable except TP 8.5, which has been inc'd in past begun omeprazole daily 3d ago which she has been taking ate one meal today, not lost wt in past month no f/c/d, no cough, no cp Abdomen Pain Score (Numeric/FACES): 3 - Related Data Allergies Allergy/AdvReac Type Severity Reaction Status Date / Time No Known Allergies Allergy Verified 09/28/19 20:55 Home Meds: Home Meds Adderall Xr 25mg 25 mg PO DAILY 06/26/19 [History] Omeprazole Magnesium [Prilosec Otc] 20 mg PO DAILY 1 Days #30 tablet. 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 . Musculoskeletal History: Reports: Back Pain, Chronic Psychiatric History: Reports: Anxiety, Other (See Below) Other Psychiatric History: Takes Adderall. Endocrine/Metabolic History: Reports: Hyperthyroidism Other Endocrine/Metabolic History: History of hyperthyroidism. - Past Surgical History HEENT Surgical History: Reports: Oral Surgery Other HEENT Surgeries/Procedures: [place] teeth removed. Right thyroidectomy. GI Surgical History: Reports: Cholecystectomy, Hernia, Inguinal, Hernia Repair/Other Other GI Surgeries/Procedures: Umbilical hernia repair. Endocrine Surgical History: Reports: Thyroidectomy Other Endocrine Surgeries/Procedures: Partial thyroidectomy. Social & Family History - Family History Family Medical History: Noncontributory - Tobacco Use Smoking Status *Q: Never Smoker - Caffeine Use Caffeine Use: Reports: None - Recreational Drug Use Recreational Drug Use: No ED ROS GENERAL - Review of Systems Review Of Systems: See Below Constitutional: Reports: No Symptoms HEENT: Reports: No Symptoms Respiratory: Reports: No Symptoms Cardiovascular: Reports: No Symptoms Endocrine: Reports: No Symptoms GI/Abdominal: Reports: Decreased Appetite, Nausea, Vomiting. Denies: Abdominal Pain : Reports: No Symptoms Musculoskeletal: Reports: No Symptoms Skin: Reports: No Symptoms Neurological: Reports: No Symptoms Psychiatric: Reports: No Symptoms Hematologic/Lymphatic: Reports: No Symptoms Immunologic: Reports: No Symptoms ED EXAM, GI/ABD - Physical Exam Exam: See Below Exam Limited By: No Limitations General Appearance: Alert, WD/WN, Mild Distress, Other (holding emesis bag) Throat/Mouth: Normal Inspection Head: Atraumatic Neck: Normal Inspection, Supple, Non-Tender, Full Range of Motion. No: Lymphadenopathy (R), Lymphadenopathy (L) Respiratory/Chest: No Respiratory Distress, Lungs Clear, Normal Breath Sounds, No Accessory Muscle Use, Chest Non-Tender Cardiovascular: Regular Rate, Rhythm, No Edema, No Gallop, No JVD, No Murmur, No Rub GI/Abdominal Exam: Normal Bowel Sounds, Soft, No Distention, Other (mild tender across lower abd, no flank tender, slight tender epigastrium, no CVAT). No: Distended, Guarding, Rigid Back Exam: Normal Inspection, Full Range of Motion, NT Extremities: Normal Inspection, Normal Range of Motion, Non-Tender, No Pedal Edema, Other (dec'd turgor UE without tenting) Neurological: Alert, Oriented, CN II-XII Intact, Normal Cognition, Normal Gait, No Motor/Sensory Deficits Psychiatric: Normal Affect, Normal Mood Skin Exam: Warm, Dry, Intact, Normal Color, No Rash Lymphatic: No Adenopathy Course - Vital Signs Last Recorded V/S: Last Vital Signs Temp 36.6 C 09/28/19 20:44 Pulse 117 H 09/28/19 20:44 Resp 18 09/28/19 20:44 BP 151/89 H 09/28/19 20:44 Pulse Ox 100 09/28/19 20:44 - Orders/Labs/Meds Meds: Medications Discontinued Medications Generic Name Dose Route Start Last Admin Trade Name Freq PRN Reason Stop Dose Admin Metoclopramide HCl 10 mg 09/28/19 21:09 Reglan IM 09/28/19 21:10 ONETIME ONE - Re-Assessments/Exams Free Text/Narrative Re-Assessment/Exam: 09/28/19 21:59 pt felt much better after metoclopramide 10 mg IM, drinking juice and eating crackers likely has some constipation as well and pt agreed to drink 10-oz Mg citrate in AM no N at d/c, likely has GERD more than actual gastritis or PUD there has not been sufficient time for the omeprazole to work is working tomorrow evening Departure - Departure Time of Disposition: 21:55 Disposition: Home, Self-Care 01 Condition: Good Clinical Impression: Nausea and vomiting, Mild dehydration - Discharge Information *PRESCRIPTION DRUG MONITORING PROGRAM REVIEWED*: Not Applicable *COPY OF PRESCRIPTION DRUG MONITORING REPORT IN PATIENT FAVIO: Not Applicable Prescriptions: Metoclopramide HCl [Reglan] 10 mg PO QID #20 tablet Ondansetron [Zofran ODT] 4 mg PO Q6H PRN #8 tab.dis PRN Reason: Nausea Instructions: Nausea and Vomiting, Adult, Rehydration, Adult Additional Instructions: Increase fluid, at least 2 liters without caffeine or alcohol daily. Continue omeprazole (Prilosec) one tab daily. To prevent nausea, take metoclopramide 10 mg 1 tab 4 times a day for 5 days. To treat nausea, take ondansetron ODT 4 mg 1 tab under the tongue every 6 hours as needed. Eat 3 meals a day, even if it is a light meal. Do not skip meals. Avoid fatty foods. To clean out the bowels (and prevent cramping), drink a 10-ounce bottle of magnesium citrate in the morning. See your physician in the next 2 days for further evaluation and recommen dations. Sepsis Event Note (ED) - Evaluation Sepsis Screening Result: No Definite Risk - Focused Exam Vital Signs: Vital Signs Temp Pulse Resp BP Pulse Ox 09/28/19 20:44 36.6 C 117 H 18 151/89 H 100
== END 2019-09-28 22:05 | disposition home or self-care (01) ==
LOC: FB.ED 20:41
DX: E86.0 Dehydration (principal); R11.2 Nausea with vomiting, unspecified; F41.9 Anxiety disorder, unspecified; Z79.899 Other long term (current) drug therapy; Z90.49 Acquired absence of other specified parts of digestive tract; Z98.890 Other specified postprocedural states
CPT/HCPCS: 96372; 99283; J2765

== ENCOUNTER 2021-01-07 09:45 | Emergency (ER) | payer MEDICAID ==
[2021-01-07] MEDS ORDERED: diphenhydrAMINE 50 MG/ML SDV IVPUSH ONE (10:01)
[2021-01-07] MEDS ORDERED: Sodium Chloride 0.9% 1,000 ML IV ONE (10:01)
[2021-01-07] MEDS ORDERED: Sodium Chloride 0.9% 10 ML Syringe FLUSH PRN (10:01)
[2021-01-07] MEDS ORDERED: Prochlorperazine 10 MG/2 ML SDV IVPUSH ONE (10:01)
--- NOTE | 2021-01-07 10:05 | EDM.PDOC ---
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 She reports she mild abdominal pain and some nausea but no vomiting. The pain is in her upper abdomen and it was a dull pain but had some sharp spikes. She continued to work through the night and when she got off work this morning she went home and went to sleep only to wake up at about 8:30 AM with worsening abdominal pain that was dull but with sharp spikes and was nonradiating. She also developed vomiting and has had vomiting 10+. She states she felt like she was going to have diarrhea but she had no loose stools and has had no bowel movement today. She reports the pain is an 8/10 and nothing really seems to make it better or worse. She has had similar symptoms in the past and had some Zofran at home from that before and tried several Zofran without any relief of her symptoms. She presents to the emergency department via private vehicle for evaluation. She is actively vomiting upon arrival and appears in some discomfort. No cough. No difficulty breathing. No dysuria or hematuria. He was or chills. There are no other associated signs or symptoms. There are no other modifying factors. 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 Musculoskeletal History: Reports: Back Pain, Chronic Psychiatric History: Reports: Anxiety Endocrine/Metabolic History: Reports: Hyperthyroidism Other Endocrine/Metabolic History: History of hyperthyroidism. - Past Surgical History HEENT Surgical History: Reports: Oral Surgery ([place] teeth removed.) GI Surgical History: Reports: Cholecystectomy, Colonoscopy, EGD, Hernia, Inguinal, Hernia Repair/Other Other GI Surgeries/Procedures: Umbilical hernia repair. Endocrine Surgical History: Reports: Thyroidectomy Other Endocrine Surgeries/Procedures: Partial thyroidectomy. 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 Denies: Fever, Chills, Decreased Appetite HEENT: Denies: Dental Pain, Throat Pain Respiratory: Denies: Shortness of Breath, Cough Cardiovascular: Denies: Chest Pain, Lightheadedness GI/Abdominal: Reports: Abdominal Pain, Nausea, Vomiting. Denies: Diarrhea : Denies: Dysuria, Frequency, Hematuria Musculoskeletal: Reports: Back Pain (Pain does seem to radiate from her upper abdomen to her back.). Denies: Neck Pain Skin: Denies: Diaphoresis, Rash Neurological: Reports: Headache. Denies: Confusion, Dizziness Psychiatric: Denies: Confusion, Hallucinations Hematologic/Lymphatic: Denies: Easy Bleeding, Easy Bruising ED EXAM, GI/ABD - Physical Exam Exam: See Below Exam Limited By: No Limitations General Appearance: Alert, WD/WN, Moderate Distress (Active emesis) Eyes: Bilateral: Normal Appearance, EOMI Ears: Normal External Exam, Hearing Grossly Normal Nose: Normal Inspection, Normal Mucosa, No Blood Throat/Mouth: Normal Voice, No Airway Compromise, Other (Dry mucous membranes. No erythema posteriorly.) Head: Atraumatic, Normocephalic Respiratory/Chest: No Respiratory Distress, Lungs Clear, Normal Breath Sounds, No Accessory Muscle Use, Chest Non-Tender Cardiovascular: Normal Peripheral Pulses, Regular Rate, Rhythm, No Murmur GI/Abdominal Exam: Normal Bowel Sounds, Soft, Non-Tender, No Mass. No: Guarding, Rebound Back Exam: Normal Inspection, Full Range of Motion Extremities: Normal Inspection, Normal Range of Motion, Non-Tender, No Pedal Edema, Normal Capillary Refill Neurological: Alert, Oriented, CN II-XII Intact, Normal Cognition, No Motor/Sensory Deficits Psychiatric: Normal Affect Skin Exam: Warm, Dry, Diaphoretic Course - Vital Signs Last Recorded V/S: Last Vital Signs Temp 36.5 C 01/07/21 11:36 Pulse 85 01/07/21 11:36 Resp 16 01/07/21 11:36 BP 158/88 H 01/07/21 11:36 Pulse Ox 100 01/07/21 11:36 - Orders/Labs/Meds Orders: Active Orders 24 hr Category Date Time Status Peripheral IV Insertion Adult [OM.PC] Routine Oth 01/07/21 10:01 Ordered Labs: Laboratory Tests 01/07/21 01/07/21 01/07/21 Range/Units 10:25 10:25 10:25 WBC 10.7 H (3.0-10.3) x10-3/uL RBC 4.54 (3.60-5.20) x10(6)uL Hgb 14.4 (11.4-15.5) g/dL Hct 42.7 (34.2-48.2) % MCV 94.1 (76.7-100.5) fL MCH 31.8 (23.9-33.9) pg MCHC 33.8 (31.9-34.8) g/dL RDW 12.6 (12.3-16.5) % Plt Count 266 (151-488) x10(3)uL MPV 7.5 (7.1-12.4) fL Neut % (Auto) 87.1 H (30.8-76.2) % Lymph % (Auto) 10.1 L (18.4-52.1) % [place] % (Auto) 2.5 L (4.4-15.7) % Eos % (Auto) 0.1 L (0.6-8.1) % Baso % (Auto) 0.2 (0.2-1.5) % Neut # (Auto) 9.3 H (1.5-6.3) x10-3/uL Lymph # (Auto) 1.1 (1.0-4.4) x10-3/uL [place] # (Auto) 0.3 (0.3-1.0) x10-3/uL Eos # (Auto) 0.0 (0.0-0.8) x10-3/uL Baso # (Auto) 0.0 (0.0-0.1) x10-3/uL Sodium 141 (135-145) mmol/L Potassium 3.3 L (3.5-5.3) mmol/L Chloride 105 D (100-110) mmol/L Carbon Dioxide 26 (21-32) mmol/L BUN 8 (7-18) mg/dL Creatinine 1.0 (0.55-1.02) mg/dL Est Cr Clr Drug Dosing 87.74 mL/min Estimated GFR (MDRD) > 60 (>60) BUN/Creatinine Ratio 8.0 L (9-20) Glucose 113 (80-116) mg/dL Calcium 9.1 (8.6-10.2) mg/dL Magnesium 1.8 (1.8-2.5) mg/dL Total Bilirubin 0.5 (0.1-1.3) mg/dL AST 20 D (5-25) IU/L ALT 26 (12-36) U/L Alkaline Phosphatase 51 L (56-112) IU/L C-Reactive Protein (0.5-0.9) mg/dL Total Protein 8.4 H (6.0-8.0) g/dL Albumin 4.8 (3.5-5.2) g/dL Globulin 3.6 g/dL Albumin/Globulin Ratio 1.3 Lipase 287 (73-393) U/L Urine Color (YELLOW) Urine Appearance (CLEAR) Urine pH (5.0-6.5) Ur Specific [place] (1.010-1.025) Urine Protein (NEGATIVE) mg/dL Urine Glucose (UA) (NORMAL) mg/dL Urine Ketones (NEGATIVE) mg/dL Urine Occult Blood (NEGATIVE) Urine Nitrite (NEGATIVE) Urine Bilirubin (NEGATIVE) Urine Urobilinogen (NEGATIVE) mg/dL Ur Leukocyte Esterase (NEGATIVE) Urine RBC (0-5) Urine WBC (0-5) Ur Squamous Epith Cells (NS,R,O) Urine Bacteria (NS) Urine HCG, Qual (NEGATIVE) 01/07/21 01/07/21 01/07/21 Range/Units 10:25 11:16 11:16 WBC (3.0-10.3) x10-3/uL RBC (3.60-5.20) x10(6)uL Hgb (11.4-15.5) g/dL Hct (34.2-48.2) % MCV (76.7-100.5) fL MCH (23.9-33.9) pg MCHC (31.9-34.8) g/dL RDW (12.3-16.5) % Plt Count (151-488) x10(3)uL MPV (7.1-12.4) fL Neut % (Auto) (30.8-76.2) % Lymph % (Auto) (18.4-52.1) % [place] % (Auto) (4.4-15.7) % Eos % (Auto) (0.6-8.1) % Baso % (Auto) (0.2-1.5) % Neut # (Auto) (1.5-6.3) x10-3/uL Lymph # (Auto) (1.0-4.4) x10-3/uL [place] # (Auto) (0.3-1.0) x10-3/uL Eos # (Auto) (0.0-0.8) x10-3/uL Baso # (Auto) (0.0-0.1) x10-3/uL Sodium (135-145) mmol/L Potassium (3.5-5.3) mmol/L Chloride (100-110) mmol/L Carbon Dioxide (21-32) mmol/L BUN (7-18) mg/dL Creatinine (0.55-1.02) mg/dL Est Cr Clr Drug Dosing mL/min Estimated GFR (MDRD) (>60) BUN/Creatinine Ratio (9-20) Glucose (80-116) mg/dL Calcium (8.6-10.2) mg/dL Magnesium (1.8-2.5) mg/dL Total Bilirubin (0.1-1.3) mg/dL AST (5-25) IU/L ALT (12-36) U/L Alkaline Phosphatase (56-112) IU/L C-Reactive Protein < 0.2 L (0.5-0.9) mg/dL Total Protein (6.0-8.0) g/dL Albumin (3.5-5.2) g/dL Globulin g/dL Albumin/Globulin Ratio Lipase (73-393) U/L Urine Color Yellow (YELLOW) Urine Appearance Slightly cloudy (CLEAR) Urine pH 5.0 (5.0-6.5) Ur Specific [place] 1.030 H (1.010-1.025) Urine Protein Negative (NEGATIVE) mg/dL Urine Glucose (UA) Normal (NORMAL) mg/dL Urine Ketones 15 H (NEGATIVE) mg/dL Urine Occult Blood Moderate H (NEGATIVE) Urine Nitrite Negative (NEGATIVE) Urine Bilirubin Negative (NEGATIVE) Urine Urobilinogen Normal (NEGATIVE) mg/dL Ur Leukocyte Esterase Negative (NEGATIVE) Urine RBC 0-5 (0-5) Urine WBC 0-5 (0-5) Ur Squamous Epith Cells Moderate H (NS,R,O) Urine Bacteria Few H (NS) Urine HCG, Qual Negative (NEGATIVE) Meds: Medications Discontinued Medications Generic Name Dose Route Start Last Admin Trade Name Freq PRN Reason Stop Dose Admin Diphenhydramine HCl 25 mg 01/07/21 10:01 01/07/21 10:02 Diphenhydramine 50 Mg/Ml Sdv IVPUSH 01/07/21 10:02 25 mg ONETIME ONE Administration Sodium Chloride 1,000 mls @ 999 mls/hr 01/07/21 10:01 01/07/21 10:00 Normal Saline IV 01/07/21 11:01 999 mls/hr .BOLUS ONE Administration Pantoprazole Sodium 40 mg 01/07/21 11:11 01/07/21 11:26 Pantoprazole 40 Mg Vial IVPUSH 01/07/21 11:12 40 mg ONETIME ONE Administration Prochlorperazine Edisylate 10 mg 01/07/21 10:01 01/07/21 10:05 Prochlorperazine 10 Mg/2 Ml Sdv IVPUSH 01/07/21 10:02 10 mg ONETIME ONE Administration Sodium Chloride 10 ml 01/07/21 10:01 01/07/21 09:50 Sodium Chloride 0.9% 10 Ml Syringe FLUSH 10 ml ASDIRECTED PRN Administration Keep Vein Open - Re-Assessments/Exams Free Text/Narrative Re-Assessment/Exam: 01/07/21 11:35: The white blood cell count was 10.7. Hemoglobin is 14.4. Platelet count is normal. Sodium is 141. Potassium is 3.3. BUN is 8 and creatinine is 1.0. Glucose is 113. LFTs are normal. CRP is normal. Lipase is normal. Urinalysis had trace ketones but was otherwise negative and the test was negative. The patient has received Compazine 10 mg IV and Benadryl 25 mg IV as well as normal saline 1 L as a bolus. She feels much improved. Days if she moves too fast, she still has some mild nausea but she has had no more emesis. Area. Her exam is pretty much benign present with a nontender abdomen. She is awake, alert and appropriate. The patient is very desirous of being discharged home at this time and appears to be stable for discharge. I will give her a prescription of Compazine. Precautions and reasons for return to the emergency department were discussed with the patient while she was in the emergency department and were detailed in the patient's discharge instructions. Departure - Departure Time of Disposition: 11:45 Disposition: Home, Self-Care 01 Condition: Good (Improved.) Clinical Impression: Abdominal pain of unknown etiology, Dehydration Vomiting Qualifiers: Vomiting type: unspecified Vomiting Intractability: intractable Nausea presence: with nausea Qualified Code(s): R11.2 - Nausea with vomiting, unspecified - Discharge Information Prescriptions: Prochlorperazine [Compazine] 10 mg PO Q6H PRN #15 tab PRN Reason: Nausea/Vomiting Instructions: Nausea and Vomiting, Adult, [id number], Dehydration, Adult, [id number], Abdominal Pain, Adult, [id number] Referrals: Lucas Gold MD [Primary Care Provider] - Forms: ED Department Discharge Additional Instructions: Your blood tests were reassuringly normal. Your urine test showed no evidence of infection and you were not . I am unsure why you are having the abdominal pain and the vomiting. It could be related to ulcers or could be something related to a viral infection or food poisoning. You should rest. You should drink small amounts of fluids frequently. Medication as prescribed for nausea or vomiting (Compazine 10 mg). Back to the emergency department for worsening abdominal pain, unrelenting vomiting or any other concerning signs or symptoms. The prescription for the Compazine was electronically sent to [facility] in [place]. Sepsis Event Note (ED) - Focused Exam Vital Signs: Vital Signs Temp Pulse Resp BP Pulse Ox 01/07/21 11:36 36.5 C 85 16 158/88 H 100 01/07/21 09:45 36.4 C 105 H 16 157/92 H 99 - My Orders Last 24 Hours: My Active Orders 01/07/21 10:01 Peripheral IV Insertion Adult [OM.PC] Routine - Assessment/Plan Last 24 Hours: My Active Orders 01/07/21 10:01 Peripheral IV Insertion Adult [OM.PC] Routine
[2021-01-07] MEDS ORDERED: Pantoprazole 40 MG Vial IVPUSH ONE (11:11)
[2021-01-07 11:43] VITALS: BP 158/88; PULSE 85
== END 2021-01-07 12:00 | disposition home or self-care (01) ==
LOC: FB.ED 09:45
DX: R10.9 Unspecified abdominal pain (principal); R11.2 Nausea with vomiting, unspecified; E86.0 Dehydration; E05.90 Thyrotoxicosis, unspecified without thyrotoxic crisis or storm; Z79.899 Other long term (current) drug therapy
CPT/HCPCS: 36415; 80053; 81001; 81025; 83690; 83735; 85025; 86140; 96374; 96375; 99284-25; C9113; J0780; J1200; J7030

== ENCOUNTER 2024-04-08 19:32 | Emergency (ER) | payer OTHER, MEDICAID ==
[2024-04-08] MEDS ORDERED: Sodium Chloride 0.9% 10 ML Syringe FLUSH PRN (19:58)
[2024-04-08] MEDS ORDERED: Prochlorperazine 10 MG in Sodium Chloride 0.9% 50 ML IV ONE (20:00)
[2024-04-08] MEDS: Ketorolac 30 MG/ML SDV IVPUSH ONE (20:17)
[2024-04-08] MEDS: LORazepam 2 MG/ML SDV IVPUSH ONE (20:20)
[2024-04-08 20:27] LABS: EOSINOPHILS ABSOLUTE AUTO 0.1 x10-3/uL (0.0-0.8)
[2024-04-08 20:28] LABS: BASOPHILS ABSOLUTE AUTO 0.1 x10-3/uL (0.0-0.1); BASOPHILS PERCENT AUTO 0.8 % (0.2-1.5); EOSINOPHILS PERCENT AUTO 1.2 % (0.6-8.1); HEMOGLOBIN 14.2 g/dL (11.4-15.5); LYMPHOCYTES ABSOLUTE AUTO 2.7 x10-3/uL (1.0-4.4); LYMPHOCYTES PERCENT AUTO 32.7 % (18.4-52.1); MEAN CORPUSCULAR HEMOGLOBIN 33.3 pg (23.9-33.9); MEAN CORPUSCULAR HGB CONC 34.7 g/dL (31.9-34.8); MEAN CORPUSCULAR VOLUME 95.7 fL (76.7-100.5); MEAN PLATELET VOLUME 7.8 fL (7.1-12.4); MONOCYTES ABSOLUTE AUTO 0.7 x10-3/uL (0.3-1.0); MONOCYTES PERCENT AUTO 8.8 % (4.4-15.7); NEUTROPHILS ABSOLUTE AUTO 4.7 x10-3/uL (1.5-6.3); NEUTROPHILS PERCENT AUTO 56.5 % (30.8-76.2); PLATELET COUNT,PLT 333 x10(3)uL (151-488); RED BLOOD CELL COUNT 4.28 x10(6)uL (3.60-5.20); RED CELL DISTRIBUTION WIDTH 14.3 % (12.3-16.5); WHITE BLOOD CELL COUNT,WBC 8.3 x10-3/uL (3.0-10.3)
[2024-04-08 20:29] LABS: BLOOD UREA NITROGEN,BUN 5 mg/dL (7-18); BUN/CREATININE RATIO 6.3 (9-20); CALCIUM 9.3 mg/dL (8.6-10.2); CARBON DIOXIDE,CO2 26 mmol/L (21-32); CHLORIDE,CL 100 mmol/L (100-110); CREATININE 0.8 mg/dL (0.55-1.02); ESTIMATED GFR 102 mL/min (>60); GLUCOSE RANDOM 98 mg/dL (80-116); POTASSIUM,K 4.4 mmol/L (3.5-5.3); SODIUM,NA 138 mmol/L (135-145)
[2024-04-08] MEDS: Prochlorperazine 10 MG/2 ML SDV IVPUSH ONE (20:32)
[2024-04-08 20:40] LABS: A/G RATIO 1.1; ALBUMIN 4.3 g/dL (3.5-5.2); ALKALINE PHOSPHATASE 49 IU/L (56-112); ASPARTATE AMNIOTRANSFERASE,AST 66 IU/L (5-25); BILIRUBIN TOTAL 1.1 mg/dL (0.1-1.3); PROTEIN TOTAL,TP 8.1 g/dL (6.0-8.0)
[2024-04-08 20:42] LABS: ALANINE AMINOTRANSFERASE,ALT 165 U/L (12-36)
[2024-04-08 22:16] VITALS: BP 136/82; PULSE 90
== END 2024-04-08 22:15 | disposition home or self-care (01) ==
LOC: FB.ED 19:32
DX: G43.909 Migraine, unspecified, not intractable, without status migrainosus (principal); R74.01 Elevation of levels of liver transaminase levels; Z79.899 Other long term (current) drug therapy; Z90.49 Acquired absence of other specified parts of digestive tract
CPT/HCPCS: 70450; 80053; 84484; 85025; 96374; 96375; 99284; 99284-25; J0780; J1885; J2060

== ENCOUNTER 2025-01-11 09:31 | Emergency (ER) | payer OTHER, MEDICAID ==
[2025-01-11 09:49] VITALS: BP 145/91; PULSE 100
[2025-01-11] MEDS: Ketorolac 30 MG/ML SDV IVPUSH ONE (10:13)
[2025-01-11 10:21] LABS: BASOPHILS ABSOLUTE AUTO 0.0 x10-3/uL (0.0-0.1); BASOPHILS PERCENT AUTO 0.5 % (0.2-1.5); EOSINOPHILS ABSOLUTE AUTO 0.0 x10-3/uL (0.0-0.8); EOSINOPHILS PERCENT AUTO 0.6 % (0.6-8.1); LYMPHOCYTES ABSOLUTE AUTO 1.9 x10-3/uL (1.0-4.4); LYMPHOCYTES PERCENT AUTO 40.2 % (18.4-52.1); MEAN PLATELET VOLUME 7.7 fL (7.1-12.4); MONOCYTES ABSOLUTE AUTO 0.3 x10-3/uL (0.3-1.0); MONOCYTES PERCENT AUTO 7.1 % (4.4-15.7); NEUTROPHILS ABSOLUTE AUTO 2.4 x10-3/uL (1.5-6.3); NEUTROPHILS PERCENT AUTO 51.6 % (30.8-76.2); PLATELET COUNT,PLT 285 x10(3)uL (151-488); RED BLOOD CELL COUNT 4.59 x10(6)uL (3.60-5.20); RED CELL DISTRIBUTION WIDTH 13.0 % (12.3-16.5); WHITE BLOOD CELL COUNT,WBC 4.7 x10-3/uL (3.0-10.3)
[2025-01-11 10:24] LABS: BLOOD UREA NITROGEN,BUN 8 mg/dL (7-18); CARBON DIOXIDE,CO2 31 mmol/L (21-32); CHLORIDE,CL 103 mmol/L (100-110); CREATININE 0.6 mg/dL (0.55-1.02); EST CRCL DRUG DOSING (CG) 122.25 mL/min; ESTIMATED GFR 123 mL/min (>60); GLUCOSE RANDOM 89 mg/dL (80-116); POTASSIUM,K 3.6 mmol/L (3.5-5.3); SODIUM,NA 141 mmol/L (135-145)
[2025-01-11 10:30] LABS: GLUCOSE,URINE NORMAL (NORMAL); OCCULT BLOOD,URINE NEGATIVE (NEGATIVE)
[2025-01-11 10:30] LABS: A/G RATIO 1.5; ALANINE AMINOTRANSFERASE,ALT 24 U/L (12-36); ASPARTATE AMNIOTRANSFERASE,AST 13 IU/L (5-25); BILIRUBIN TOTAL 0.5 mg/dL (0.1-1.3); PROTEIN TOTAL,TP 7.8 g/dL (6.0-8.0)
[2025-01-11] MEDS: Iopamidol 755 Mg/ML 100 ML Bottle IV SCH (10:34)
[2025-01-11 10:44] LABS: APPEARANCE,URINE CLEAR (CLEAR)
== END 2025-01-11 11:25 | disposition home or self-care (01) ==
LOC: FB.ED 09:31
DX: K29.00 Acute gastritis without bleeding (principal); L72.8 Other follicular cysts of the skin and subcutaneous tissue; Z79.899 Other long term (current) drug therapy; Z90.49 Acquired absence of other specified parts of digestive tract
CPT/HCPCS: 74177; 80053; 81003; 81025; 83690; 85025; 96361; 96374; 99284; J1885; J7030; Q9967

== ENCOUNTER 2025-01-14 23:22 | Emergency (ER) | payer MEDICAID, OTHER ==
[2025-01-15 00:59] VITALS: BP 138/72; PULSE 92
== END 2025-01-15 00:18 | disposition home or self-care (01) ==
LOC: FB.ED 23:22 → SUPCPDRO 23:22 → FB.ED 01-15 00:18
DX: T78.3XXA Angioneurotic edema, initial encounter (principal); Z79.899 Other long term (current) drug therapy
CPT/HCPCS: 99283